=== PATIENT | male | born 1980 | race Two or more races ===

== ENCOUNTER 2016-10-21 21:15 | Emergency (ER) | payer SELFPAY ==
[~2016-10-21] VITALS: Ht 170.2 cm; Wt 72.6 kg
[2016-10-21] MEDS ORDERED: KETOROLAC TROMETHAMINE INJ 60 MG/2 ML VIAL IM ONE ×2 (21:32→22:00)
[2016-10-21 23:01] VITALS: BP 136/81
== END 2016-10-21 23:01 | disposition home or self-care (01) ==
LOC: ER 21:17
DX: M54.41 Lumbago with sciatica, right side (principal)
CPT/HCPCS: 72131; 96372; 99284; A4606; J1885; Z7610

== ENCOUNTER 2018-06-07 12:41 | Emergency (ER) | payer SELFPAY ==
[~2018-06-07] VITALS: Ht 170.2 cm; Wt 70.3 kg
[2018-06-07] MEDS ORDERED: ONDANSETRON HCL/PF 4 MG/2 ML VIAL IVP ONE (13:30)
[2018-06-07] MEDS ORDERED: IV NS 0.9% 1,000 ML BAG IV ONE (13:30)
[2018-06-07] MEDS ORDERED: ONDANSETRON HCL/PF 4 MG/2 ML VIAL ONE (13:31)
[2018-06-07 13:43] LABS: BASOPHILS # (AUTO) 0.1 /CMM (0.0-0.2); BASOPHILS % (AUTO) 0.6 % (0.0-2.0); EOSINOPHILS % (AUTO) 0.6 % (0.0-6.0); HEMATOCRIT 45 % (39-51); HEMOGLOBIN 15.1 g/dL (13.5-17.5); LYMPHOCYTES # (AUTO) 0.6 /CMM (0.8-4.8); LYMPHOCYTES % (AUTO) 5.4 % (20.0-44.0); MEAN CORPUSCULAR HGB CONC 33 g/dl (31.0-36.0); MEAN CORPUSCULAR VOLUME 86 fL (80-96); MONOCYTES # (AUTO) 0.3 /CMM (0.1-1.30); MONOCYTES % (AUTO) 3.2 % (2.0-12.0); NEUTROPHILS # (AUTO) 9.1 /CMM (1.8-8.9); NEUTROPHILS % (AUTO) 90.2 % (43.0-81.0); PLATELET COUNT (AUTO) 226 /CMM (150-450); RDW COEFFICIENT OF VARIATION 12.6 (11.5-15.0); RED BLOOD CELL COUNT(AUTO) 5.26 MIL/uL (4.5-6.0); WHITE BLOOD COUNT (AUTO) 10.2 K/uL (4.3-11.0)
[2018-06-07 13:53] LABS: CREATININE 0.8 mg/dL (0.6-1.3); POTASSIUM 3.5 mmol/L (3.5-5.1)
[2018-06-07 13:59] LABS: ALBUMIN 3.6 g/dL (3.4-5.0); BILIRUBIN,DIRECT 0.1 mg/dL (0.0-0.2); BILIRUBIN,TOTAL 0.3 mg/dL (0.2-1.0); TOTAL PROTEIN, SERUM 7.2 g/dL (6.4-8.2)
[2018-06-07 14:03] LABS: INR 0.98 (0.85-1.15)
[2018-06-07 14:18] LABS: APPEARANCE,URINE Clear (CLEAR); BILIRUBIN,URINE Negative (NEGATIVE); BLOOD, URINE Negative Ery/uL (NEGATIVE); COLOR,URINE Yellow (YELLOW); KETONES,URINE Negative (NEGATIVE); LEUKOCYTE ESTERASE ,URINE Negative (NEGATIVE); NITRITE, URINE Negative (NEGATIVE); PH,URINE 5.5 (5.0-8.0); PROTEIN,URINE Negative (NEGATIVE); UGLUCOSE Negative (NEGATIVE); UROBILINOGEN,URINE 0.2 EU/dL (0.2)
--- NOTE | 2018-06-07 15:29 | NUR ---
PT BROUGHT IN FOR ABDOMINAL DISCOMFORT SEEN BY MD GIVEN MEDICATIONS AND FLUID DISCHARGED TO HOME WALKING WITH STEADY GAIT GIVEN ACI AND LABS WITH PRESCRIPTION.
[2018-06-07 15:30] VITALS: BP 102/70
== END 2018-06-07 15:31 | disposition home or self-care (01) ==
LOC: ER 12:45
DX: A08.4 Viral intestinal infection, unspecified (principal); R55 Syncope and collapse; M54.30 Sciatica, unspecified side
CPT/HCPCS: 36415; 71045; 80048; 80076; 81001; 82962; 83690; 85025; 85730; 93005; 96361; 96374; 99285; A4606; J2405; Z7610; 81000-TC